=== PATIENT | female | born 1955 | race Caucasian/White ===

== ENCOUNTER → 2018-01-18 | Outpatient (CLI) | payer OTHER ==
[~2018-01-18] MED LIST: ALBU8.5H IH; CODE118S5 PO; DICL100G39 TOP; EPIN0.3P15 IM; TRAZ-163 PO
[2018-01-18 08:25] LABS: PLATELET COUNT, AUTOMATED 254 K/uL (150-450)
[2018-01-18 08:53] LABS: LDL CHOLESTEROL 50 mg/dl
== END ==
LOC: LAB 08:04
PROVIDERS: ATTEND Internal Medicine
DX: E04.2 Nontoxic multinodular goiter (principal); R53.83 Other fatigue
CPT/HCPCS: 36415; 82040; 82247; 82310; 82374; 82435; 82465; 82565; 82947; 83718; 84075; 84132; 84155; 84295; 84436; 84443; 84450; 84460; 84478; 84481; 84520; 85025

== ENCOUNTER → 2018-04-06 | Outpatient (CLI) | payer OTHER ==
--- NOTE | 2018-04-19 09:31 | RADIOLOGY IMAGING REPORT ---
FACILITY: [facility] - [place] PATIENT NAME: Carmen Bernal : 1955 MR: [id number] V: [id number] EXAM DATE: ORDERING PHYSICIAN: MEL OLIVER TECHNOLOGIST: Location: [facility] Patient: Carmen Bernal : 1955 Visit/Account:[id number] Date of Sevice: 04/06/2018 EXAMINATION: Ultrasound thyroid HISTORY: Multiple thyroid nodules. COMPARISON: Thyroid ultrasound report dated 12/19/2017 from an outside institution. The images are no t available. FINDINGS: This exam was held since 04/06/2018, as the radiology department was waiting for prior to be loaded to PACS. I'm dictating this exam on 04/19/2018, as the priors have still not been submitted. An addendum will be made if the prior exam is ever submitted. Thyroid size: Right lobe: 4.9 x 2.0 x 1.5 cm Left lobe: 4.7 x 1.7 x 1.4 cm Isthmus: 0.6 cm Thyroid heterogeneity: Patchy, heterogeneous and hypoechoic parenchyma. Thyroid vascularity: Diffusely increased vascularity. Thyroid nodules: Right lobe: * 1.5 cm isoechoic solid, well-defined nodule in the inferior pole, not hypervascular compared to th e adjacent thyroid. Left lobe: * There are no discrete nodules on the left. Isthmus: * 0.9 cm isoechoic solid nodule in the right isthmus with slightly irregular margins. The nodule is not hypervascular compared to the adjacent thyroid. Additional findings: None. IMPRESSION: 1. Heterogeneous, hypervascular and patchy thyroid is suspicious for chronic thyroiditis, potentially Kadie's. 2. 2 discrete isoechoic solid nodules, the largest measuring 1.5 cm in the right inferior pole. These are both low suspicion nodules. FNA biopsy of the right inferior pole nodule could be considered, ve rsus thyroid ultrasound follow-up in 12 months. REFERENCE: 2015 [place] [employer] Management Guidelines for Adult Patients with Thyroid Nodules and D ifferentiated Thyroid Cancer: The [place] [employer] Guidelines Task Force on Thyroid Nodul es and Differentiated Thyroid Cancer. SONOGRAPHIC PATTERNS: * Benign: Purely cystic nodules (no solid component); estimated risk of malignancy <1 percent; no bi opsy recommended. * Very Low Suspicion: Spongiform or partially cystic nodules without any of the sonographic features described in low, intermediate, or high suspicion patterns; estimated risk of malignancy <3 percent; consider FNA at > 2 cm (Observation without FNA is also a reasonable option). * Low Suspicion: Isoechoic or hyperechoic solid nodule, or partially cystic nodule with eccentric so lid areas, without microcalcification, irregular margin or ETE (extra-thyroidal extension), or taller than wide shape; estimated risk of malignancy 5-10 percent; recommend FNA at >1.5 cm. * Intermediate Suspicion: Hypoechoic solid nodule with smooth margins without microcalcifications, E TE (extra-thyroidal extension), or taller than wide shape; estimated risk of malignancy 10-20 percent ; recommend FNA at > 1 cm. * High Suspicion: Solid hypoechoic nodule or solid hypoechoic component of a partially cystic nodule with one or more of the following features: irregular margins (infiltrative, microlobulated), microc alcifications, taller than wide shape, rim calcifications with small extrusive soft tissue component, evidence of ETE (extra-thyroidal extension); estimated risk of malignancy >70-90 percent; recommend FNA at > 1 cm. NOTES: * Although a sonographically suspicious subcentimeter thyroid nodule without evidence of extrathyroi jordy extension or sonographically suspicious lymph nodes may be observed with close sonographic follow -up rather than pursuing immediate FNA, patient age and preference may modify decision-making. * A > 50% interval increase in nodule volume and/or development of new suspicious sonographic featur es are felt to be a valid reasons for potential re-aspiration of a nodule previously shown to have be nign FNA cytology. Report Dictated By: Lena Lopez MD at 04/19/2018 9:21 AM Report E-Signed By: Yanet Lopez MD at 04/19/2018 9:28 AM WSN:[id number]
== END ==
LOC: US 07:05
PROVIDERS: ATTEND Internal Medicine
DX: E06.9 Thyroiditis, unspecified (principal); E04.2 Nontoxic multinodular goiter
CPT/HCPCS: 76536

== ENCOUNTER → 2018-05-23 | Outpatient (CLI) | payer OTHER ==
[~2018-05-23] MED LIST changes: -TRAZ-163 PO; +TRAZ100T31 PO
== END ==
LOC: LAB 16:04
PROVIDERS: ATTEND Internal Medicine
DX: E04.2 Nontoxic multinodular goiter (principal)
CPT/HCPCS: 36415; 84443; 86376; 86800

== ENCOUNTER 2018-06-05 07:59 | Outpatient (RCR) | payer OTHER ==
[2018-06-05 08:09] LABS: INR 0.94
--- NOTE | 2018-06-09 15:43 | RADIOLOGY IMAGING REPORT ---
FACILITY: [facility] - [place] PATIENT NAME: Carmen Bernal : 1955 MR: [id number] V: [id number] EXAM DATE: ORDERING PHYSICIAN: MEL OLIVER TECHNOLOGIST: Location: Patient: Carmen Bernal : 1955 Visit/Account:[id number] Date of Sevice: 06/09/2018 EXAMINATION: Ultrasound guided right lobe thyroid biopsy 06/09/2018 7:22 AM HISTORY: Thyroid nodule COMPARISON: Ultrasound 04/06/2018 FINDINGS: Ultrasound-guided FNA biopsy of the solid 1.5 cm inferior right lobe thyroid nodule was di scussed with patient and informed consent was obtained. The neck was cleansed with ChloraPrep. Usin g ultrasound visualization lidocaine was administered from the skin down to the thyroid capsule. Und er ultrasound 3 separate FNA samples through the nodule were performed utilizing 25-gauge needles wit hout active aspiration. The patient did not wish to have tissue maintained for potential Afirma asse ssment, and a fourth pass was deferred. Initial cytopathologic review showed what appeared to be romina quate material for diagnostic assessment. The procedure was terminated at that point. No immediate complications were noted. IMPRESSION: Technically successful ultrasound guided right lobe thyroid biopsy. Pathology is pending . Report Dictated By: Wicho Pop MD at 06/09/2018 3:37 PM Report E-Signed By: Wicho Pop MD at 06/09/2018 3:39 PM WSN:[email or web address]
== END 2018-06-09 18:00 | disposition home or self-care (01) ==
LOC: US 07:59
PROVIDERS: ATTEND Internal Medicine
DX: E04.2 Nontoxic multinodular goiter (principal)
CPT/HCPCS: 10022; 36415; 76942; 85610; 88104; 88172

== ENCOUNTER → 2018-07-18 | Outpatient (CLI) | payer OTHER ==
[2018-07-18 09:48] LABS: PLATELET COUNT, AUTOMATED 295 K/uL (150-450)
[2018-07-18 10:03] LABS: LDL CHOLESTEROL 40 mg/dl
== END ==
LOC: LAB 09:18
PROVIDERS: ATTEND Internal Medicine
DX: Z00.00 Encounter for general adult medical examination without abnormal findings (principal); Z98.84 Bariatric surgery status; R53.83 Other fatigue
CPT/HCPCS: 82040; 82247; 82306; 82310; 82374; 82435; 82465; 82565; 82947; 83540; 83550; 83718; 83735; 84075; 84132; 84155; 84295; 84450; 84460; 84478; 84520; 85025

== ENCOUNTER → 2018-08-23 | Outpatient (CLI) | payer OTHER ==
--- NOTE | 2018-08-31 15:20 | RADIOLOGY IMAGING REPORT ---
FACILITY: [facility] PATIENT NAME: ALONDRA SANDERS : [id number] MR: [id number] V: [id number] EXAM DATE: [id number] ORDERING PHYSICIAN: MEL OLIVER TECHNOLOGIST: Eusebia Johansen PROCEDURE:BILATERAL DIGITAL SCREENING MAMMOGRAM WITH CAD ASSISTED INTERPRETATION & 3D TOMOSYNTHESIS COMPARISON:01/12/12. INDICATIONS:SCREENING FINDINGS: A focal asymmetry and a small group of benign appearing calcifications are present in the lateral aspect of the Left breast. Several other benign appearing calcifications are scattered bilaterally. DIAGNOSTIC CATEGORY 0--INCOMPLETE: NEED ADDITIONAL IMAGING EVALUATION. RECOMMENDATIONS: ADDITIONAL MAMMOGRAPHIC VIEWS REQUIRED: LEFT BREAST. IMPRESSION: BIRADS 0: Incomplete. 1. Left MLO & CC, Spot compression magnification views, and Left breast Ultrasound if indicated based on additional views. Dictated by: Cliff Sagastume M.D. on 08/23/2018 at 17:03 Transcribed by: RANDAL on 08/24/2018 at 9:05 Approved by: Wicho Pop on 08/31/2018 at 15:19 [facility]
== END ==
LOC: MAMO 01:21
PROVIDERS: ATTEND Internal Medicine
DX: Z12.31 Encounter for screening mammogram for malignant neoplasm of breast (principal); R92.8 Other abnormal and inconclusive findings on diagnostic imaging of breast
CPT/HCPCS: 77063; 77067

== ENCOUNTER → 2018-09-19 | Outpatient (CLI) | payer OTHER ==
--- NOTE | 2018-09-20 08:33 | RADIOLOGY IMAGING REPORT ---
[place] [facility] [place] ALONDRA SANDERS : [id number] MR: [id number] V: [id number] EXAM DATE: [id number] ORDERING PHYSICIAN: MEL OLIVER TECHNOLOGIST: Ninoska Bills PROCEDURE:LEFT DIGITAL DIAGNOSTIC MAMMOGRAM COMPARISON:Prior mammograms 08/23/18, 01/12/12. INDICATIONS:Further evaluation FINDINGS: The patient received Spot magnificent views in the Left CC & MLO projections. The loosely grouped calcifications in the upper outer quadrant of the Left breast are re-demonstrated. Some of the calcifications are slightly lunar although no defiant branching is seen. These are inter-dispersed with macrocalcifications. Other macrocalcifications are seen throughout the Left breast. A 6 month follow-up diagnostic Left mammogram is recommended unless clinical findings warrant more immediate attention. DIAGNOSTIC CATEGORY 3--PROBABLY BENIGN FINDING. RECOMMENDATIONS: SIX MONTH FOLLOW-UP DIAGNOSTIC MAMMOGRAM: LEFT BREAST. IMPRESSION: BIRADS 3: Probably benign finding. A 6 month follow-up Left mammogram is recommended to evaluate the calcifications in the upper outer quadrant of the Left breast. Dictated by: Molly Tsai M.D. on 09/19/2018 at 15:16 Transcribed by: RANDAL on 09/19/2018 at 16:23 Approved by: Molly Tsai M.D. on 09/20/2018 at 8:32 [facility]
== END ==
LOC: MAMO 02:01
PROVIDERS: ATTEND Internal Medicine
DX: Z12.31 Encounter for screening mammogram for malignant neoplasm of breast (principal); R92.1 Mammographic calcification found on diagnostic imaging of breast
CPT/HCPCS: 77061; 77065

== ENCOUNTER → 2018-11-03 | Outpatient (CLI) | payer OTHER | LOC: RESP 20:03 | PROVIDERS: ATTEND Internal Medicine | DX: Z02.9 Encounter for administrative examinations, unspecified (principal) ==

== ENCOUNTER 2019-03-28 10:11 | Emergency (ER) | payer OTHER ==
[2019-03-28 10:30] VITALS: BP 121/101
[2019-03-28] MEDS ORDERED: traMADol 50 MG TAB PO ONE (10:30)
[2019-03-28] MEDS ORDERED: ONDANSETRON 4 MG ODT TABDP SL ONE (10:30)
--- NOTE | 2019-03-28 11:25 | ER Report ---
History and Physical Time Seen By MD: 11:25 Hx. of Stated Complaint: fell while walking to bathroom. hurt right knee HPI/ROS CHIEF COMPLAINT: Right knee pain HISTORY OF PRESENT ILLNESS: Patient with pain to the right knee after fall., Pain to the lateral compartment. Denies any other injuries at this time. No prior knee injuries noted REVIEW OF SYSTEMS: Respiratory: No cough, no dyspnea. Cardiovascular: No chest pain, no palpitations. Gastrointestinal: No vomiting, no abdominal pain. Musculoskeletal: No back pain. Right knee pain Allergies: Coded Allergies: BEE STINGS (Unverified Allergy, Unknown, 03/28/19) Penicillins (Unverified Allergy, Unknown, 03/28/19) Home Meds Active Scripts Hydrocodone Bit/Acetaminophen (HYDROCODON-ACETAMINOPHEN 5-325) 1 Each Tablet, 1 EACH PO Q4H PRN for PAIN, #12 TAB 0 Refills Prov:ADEN LÓPEZ MD 03/28/19 Trazodone Hcl (TRAZODONE HCL) 100 Mg Tablet, 1 TAB PO QHS, #90 TAB 3 Refills Prov:MEL OLIVER MD 05/23/18 Epinephrine (EPIPEN 2-MARIS) 0.3 Mg/0.3 Ml Pen.injctr, 0.3 MG IM PRN PRN for bee sting, #1 PACK 1 Refill Prov:MEL OLIVER MD 01/17/18 Past Medical/Surgical History Noncontributory Smoking Status: Never Smoker Exposure to Second Hand Smoke?: Yes Constitutional Vital Sign - Last 24 Hours 03/28/19 03/28/19 03/28/19 10:21 10:30 12:00 Temp 98.3 Pulse 73 74 59 Resp 20 B/P (MAP) 115/90 121/101 (108) Pulse Ox 93 92 92 O2 Delivery Room Air Physical Exam General appearance: Alert no distress. Right knee: There is no significant swelling. There is no effusion. There is no obvious deformity of the knee. There is moderate tenderness to the patella. The joint is stable with no comparable ligamentous laxity to the knee. There is no tenderness proximal or distal to the knee. Neurologic exam: The patient has normal sensation distal to the injury. Vascular exam: Normal pulses and capillary refill in the foot [ ] DIFFERENTIAL DIAGNOSIS: After history and physical exam differential diagnosis was considered for knee injury including sprain, fracture, meniscus injury and soft tissue injury. Medical Decision Making EKG/Imaging Imaging FACILITY: [facility] PATIENT NAME: Carmen Bernal : 1955 MR: [id number] V: [id number] EXAM DATE: ORDERING PHYSICIAN: ADEN LÓPEZ TECHNOLOGIST: Location: [facility] [place] Patient: Carmen Bernal : 1955 Visit/Account:[id number] Date of Sevice: 03/28/2019 MRI right knee Indication: Pain Comparison: None available. Technique: Multiplanar, multisequence MRI examination is performed of the right knee without contrast. Findings: Medial compartment: There is subtle mild undersurface tearing within the posterior horn medial meniscus. There is also partial tearing at the posterior root attachment. The articular cartilage surfaces are unremarkable. Lateral compartment: There is a discoid like meniscus seen with prominent horizontal cleavage tear throughout the posterior horn and body. There appears to be extension to the articular surface of the posterior horn/body junction on image 6 as well. Subchondral impaction injury of the lateral tibial plateau with prominent surrounding marrow edema seen best on image 5 of the sagittal images. Patellofemoral compartment: High-grade chondral loss involving the lateral facet and median ridge patella cartilage with multiple foci of underlying subchondral cystic change. Bones and marrow: Subchondral impaction injury lateral tibial plateau. Ligaments and tendons: ACL and PCL are intact. The extensor mechanism is intact. The MCL is intact. The iliotibial band, biceps femoris tendon, and the fibular collateral ligament is intact The popliteus tendon is also intact. Soft tissues: Small amount of fluid suprapatellar bursa. There is mild prepatellar edema. IMPRESSION: 1. Discoid-like lateral meniscus with horizontal cleavage tear as well as undersurface tear at the posterior horn/body junction. 2. Undersurface tearing posterior horn medial meniscus. 3. Prominent chondral loss patellofemoral compartment cartilage. 4. Subchondral impaction injury of the medial tibial plateau with prominent surrounding marrow edema. Report Dictated By: Kingston Medina MD at 03/28/2019 12:19 PM Report E-Signed By: Kingston Medina MD at 03/28/2019 12:28 PM WSN:[email or web address] ED Course/Re-evaluation ED Course Patient with lateral compartment strain but no tear. Plan will be knee immobilizer crutches and follow-up with orthopedics Decision to Disposition Date: Mar 28, 2019 Decision to Disposition Time: 12:46 Depart Departure Latest Vital Signs Vital Signs Date Time Temp Pulse Resp B/P (MAP) Pulse Ox O2 Delivery O2 Flow Rate FiO2 03/28/19 12:00 59 92 03/28/19 10:30 121/101 (108) 03/28/19 10:21 98.3 20 Room Air Impression: Primary Impression: Knee LCL sprain Condition: Improved Disposition: HOME OR SELF-CARE Referrals: [facility] 2 Weeks if symptoms persist New Scripts Hydrocodone Bit/Acetaminophen (HYDROCODON-ACETAMINOPHEN 5-325) 1 Each Tablet 1 EACH PO Q4H PRN for PAIN, #12 TAB 0 Refills Prov: ADEN LÓPEZ MD 03/28/19 Departure Forms: ER Transition Record, Medications Reconciliation, Patient Portal Information Patient Instructions: Crutch Instructions (ED), Knee Immobilizer (DC), Knee Pain (ED) Problem Qualifiers Primary Impression: Knee LCL sprain Encounter type: initial encounter Laterality: right Qualified Codes: S83.421A - Sprain of lateral collateral ligament of right knee, initial encounter ADEN LÓPEZ MD Mar 28, 2019 11:25
--- NOTE | 2019-03-28 12:33 | RADIOLOGY IMAGING REPORT ---
[place] [facility] [place]IENT NAME: Carmen Bernal : 1955 MR: [id number] V: [id number] EXAM DATE: ORDERING PHYSICIAN: ADEN LÓPEZ TECHNOLOGIST: [place] [facility] [place] Patient: Carmen Bernal : 1955 Visit/Account:[id number] Date of Sevice: 03/28/2019 MRI right knee Indication: Pain Comparison: None available. Technique: Multiplanar, multisequence MRI examination is performed of the right knee without contrast . Findings: Medial compartment: There is subtle mild undersurface tearing within the posterior horn medial meniscus. There is also pa rtial tearing at the posterior root attachment. The articular cartilage surfaces are unremarkable. Lateral compartment: There is a discoid like meniscus seen with prominent horizontal cleavage tear throughout the posterio r horn and body. There appears to be extension to the articular surface of the posterior horn/body ju nction on image 6 as well. Subchondral impaction injury of the lateral tibial plateau with prominent surrounding marrow edema se en best on image 5 of the sagittal images. Patellofemoral compartment: High-grade chondral loss involving the lateral facet and median ridge patella cartilage with multiple foci of underlying subchondral cystic change. Bones and marrow: Subchondral impaction injury lateral tibial plateau. Ligaments and tendons: ACL and PCL are intact. The extensor mechanism is intact. The MCL is intact. The iliotibial band, biceps femoris tendon, and the fibular collateral ligament is intact The popliteus tendon is also intact. Soft tissues: Small amount of fluid suprapatellar bursa. There is mild prepatellar edema. IMPRESSION: 1. Discoid-like lateral meniscus with horizontal cleavage tear as well as undersurface tear at the po sterior horn/body junction. 2. Undersurface tearing posterior horn medial meniscus. 3. Prominent chondral loss patellofemoral compartment cartilage. 4. Subchondral impaction injury of the medial tibial plateau with prominent surrounding marrow edema. Report Dictated By: Kingston Medina MD at 03/28/2019 12:19 PM Report E-Signed By: Kingston Medina MD at 03/28/2019 12:28 PM WSN:[email or web address]
[2019-03-28] MEDS ORDERED: LOR5/325 PO (12:48)
== END 2019-03-28 12:58 | disposition home or self-care (01) ==
LOC: ER 10:23
DX: S83.421A Sprain of lateral collateral ligament of right knee, initial encounter (principal)
CPT/HCPCS: 99284